=== PATIENT | male | born 1980 | race African-American/Black ===

== ENCOUNTER 2016-06-20 18:49 | Emergency (ER) | payer SELFPAY ==
[2016-06-20] MEDS ORDERED: 0.9 % SODIUM CHLORIDE 1,000 ML IV SCH (19:30)
[2016-06-20] MEDS ORDERED: CloNIDine HCL 0.1 MG TABLET PO ONE ×2 (19:31→20:08)
--- NOTE | 2016-06-20 19:33 | ED Physician Documentation ---
General Adult - HISTORIAN Historian: patient, other (old records) - HPI Stated Complaint: BP elevated Chief Complaint: General Adult Additional Information: Dung JIMENEZ for 3 days. Says his BP is up although he has not taken it. Has slept much of the three days. Says he is taking his BP meds, HCTZ and amlodipine. Has not seen his primary in a year or more. Wants a new BP medication. Has taken 400 mg ibuprofen twice today. - ROS CONST: no problems. denies: fever, sweating EYES/ENT: denies: problems with vision CVS/RESP: denies: chest pain, shortness of breath, cough GI/: denies: vomiting, nausea NEURO/PSYCH: headache - PAST HX Past History: hypertension Allergies/Adverse Reactions: Allergies Allergy/AdvReac Type Severity Reaction Status Date / Time No Known Allergies Allergy Verified 01/12/16 13:31 Home Medications: Ambulatory Orders Medication Instructions Recorded Hydrochlorothiazide [Hydrodiuril] 12.5 mg PO QDAY 06/20/16 amLODIPine BESYLATE [Norvasc] 2 tab PO QDAY 06/20/16 - SOCIAL HX Smoking History: cigarettes Alcohol Use: none Drug Use: none - FAMILY HX Family History: Yes (CAD > 55 years) - VITAL SIGNS Vital Signs: Vital Signs Temp Pulse Resp BP Pulse Ox 147/91 01/12/16 14:45 - REVIEWED ASSESSMENTS Nursing Assessment Reviewed: Yes Vitals Reviewed: Yes Progress - Progress Progress: 2118, JIMENEZ resolved. BP 147/76 after two 0.1 mg doses of clonidine. ED Results Lab/Radiology - Orders Orders: ED Orders Category Date Time Status Place Saline Lock/IV Now Care 06/20/16 19:23 Ordered CBC/PLATELET/DIFF Routine Lab 06/20/16 Ordered CMP Routine Lab 06/20/16 Ordered DRUG SCREEN URINE MEDICAL ONLY Routine Lab 06/20/16 Ordered ETHANOL MEDICAL USE ONLY Stat Lab 06/20/16 Ordered URINALYSIS Routine Lab 06/20/16 Ordered 0.9 % Sodium Chloride [Normal Saline] 1,000 ml Med 06/20/16 19:30 Ordered IV Q3H CloNIDine HCL [Catapress] Med 06/20/16 19:31 Once 0.1 mg PO NOW ONE General Adult Physical Exam - PHYSICAL EXAM GENERAL APPEARANCE: Had to be awakened for exam. EENT: eye inspection normal, ENT inspection normal, pharynx normal, [place] NECK: normal inspection, supple RESPIRATORY: no resp distress, breath sounds normal CVS: reg rate & rhythm, heart sounds normal, no murmur ABDOMEN: soft, normal bowel sounds, no distension, non-tender RECTAL: deferred BACK: normal inspection, no CVA tenderness, other (no vertebral tenderness) SKIN: warm/dry, normal color EXTREMITIES: non-tender, no evidence of injury, no edema NEURO: CN's nml as tested, motor nml, weakness/sensory loss, asymmetric reflexes Discharge Clincal Impression: Headache Qualifiers: Headache type: unspecified Headache chronicity pattern: acute headache Intractability: not intractable Qualified Code(s): R51 - Headache Hypertension Qualifiers: Hypertension type: unspecified secondary hypertension Qualified Code(s): I15.9 - Secondary hypertension, unspecified; I15 - Secondary hypertension Additional Instructions: It is extremely important that you have a primary care provider to control your high blood pressure. Make an appointment to be seen in the next 2-3 days. Home Medications: Ambulatory Orders Hydrochlorothiazide [Hydrodiuril] 12.5 mg PO QDAY 06/20/16 amLODIPine BESYLATE [Norvasc] 2 tab PO QDAY 06/20/16 Condition: Good Disposition: 01 HOME, SELF-CARE Decision to Admit: NO Decision Time: 21:21
[2016-06-20] MEDS ORDERED: 0.9 % SODIUM CHLORIDE 1,000 ML IV ONE (19:39)
[2016-06-20 20:07] LABS: BASOPHILS % 0.3 (0.0-1.5); EOSINOPHILS % 4.3 % (0.0-6.8); LYMPHOCYTES # 1.8 # k/uL (0.6-4.0); MONOCYTES # 0.4 # k/uL (0.0-0.9); MONOCYTES % 5.6 % (0.0-11.0); NEUTROPHILS # 4.1 # k/uL (1.4-7.7)
[2016-06-20 20:08] LABS: eGFR (African) > 60; eGFR (Non-African) > 60
[2016-06-20 20:13] LABS: MEAN CORPUSCULAR HEMOGLOBIN 32.1 pg (28.0-34.0)
[2016-06-20] MEDS ORDERED: KETOROLAC TROMETHAMINE 30 MG/1ML VIAL IVP ONE (20:27)
[2016-06-20 21:50] VITALS: BP 152/77
[2016-06-21 06:08] LABS: OCCULT BLOOD,URINE NEGATIVE (NEGATIVE); PH URINE 7.5 (5.0 - 8.0); UROBILINOGEN URINE 0.2 Eu (0.2-1.0)
== END 2016-06-20 21:32 | disposition home or self-care (01) ==
LOC: ED 18:49
DX: R51 Headache (principal); I15.9 Secondary hypertension, unspecified
CPT/HCPCS: 80053; 80320; 85025; J1885; J7030; 81002; 96360; 96361; 99282; 99283; G0480; S1016

== ENCOUNTER 2018-06-23 20:40 | Emergency (ER) | payer OTHER ==
--- NOTE | 2018-06-23 20:52 | ED Physician Documentation ---
General Adult - HISTORIAN Historian: patient - HPI Stated Complaint: headache, elevated bp Chief Complaint: General Adult Timing: still present Severity: moderate Further Comments: yes (Pt is a 37 yo male with c/o headache and elevated blood pressure. Pt has had similar headaches in the past associated with elevated bp. Pt is on HCTZ and Norvasc. Pt has had nausea and photophobia. BP on presentation = 190/115) - ROS CONST: no problems EYES/ENT: none CVS/RESP: none GI/: nausea MS/SKIN/LYMPH: none NEURO/PSYCH: headache - PAST HX Past History: hypertension, other (DM) Allergies/Adverse Reactions: Allergies Allergy/AdvReac Type Severity Reaction Status Date / Time No Known Allergies Allergy Verified 06/23/18 21:47 Home Medications: Ambulatory Orders Medication Instructions Recorded Hydrochlorothiazide [Hydrodiuril] 12.5 mg PO QDAY 06/20/16 amLODIPine BESYLATE [Norvasc] 2 tab PO QDAY 06/20/16 Metformin HCl 500 mg PO BID 06/23/18 - SOCIAL HX Smoking History: cigarettes - FAMILY HX Family History: No - VITAL SIGNS Vital Signs: Vital Signs Temp Pulse Resp BP Pulse Ox 152/77 06/20/16 21:40 - REVIEWED ASSESSMENTS Nursing Assessment Reviewed: Yes Vitals Reviewed: Yes Progress - Progress Progress: Clonidine 0.1 mg po [place] (5/325) 2 tabs po Zofran 4 mg IV NS 500 cc IVF BP 178/116 --> 144/98 JIMENEZ improved General Adult Physical Exam - PHYSICAL EXAM GENERAL APPEARANCE: moderate distress EENT: eye inspection normal, pharynx normal NECK: normal inspection, supple RESPIRATORY: no resp distress, chest non-tender, breath sounds normal CVS: reg rate & rhythm, heart sounds normal ABDOMEN: soft, no organomegaly, normal bowel sounds BACK: normal inspection, no CVA tenderness SKIN: warm/dry, normal color EXTREMITIES: non-tender, normal range of motion, no evidence of injury NEURO: oriented X3, CN's nml as tested, motor nml, sensation nml Discharge Clincal Impression: Hypertension, Headache Referrals: Primary Doctor,No [Primary Care Provider] - Condition: Stable Disposition: 01 HOME, SELF-CARE Decision to Admit: NO Decision Time: 23:22
[2018-06-23] MEDS ORDERED: HYDROmorphone HCL/PF 1 MG/ML VIAL IVP ONE ×2 (21:04→21:21)
[2018-06-23] MEDS ORDERED: 0.9 % SODIUM CHLORIDE 500 ML IV ONE ×2 (21:06→21:40)
[2018-06-23] MEDS ORDERED: CloNIDine HCL 0.1 MG TABLET PO ONE (21:12)
[2018-06-23] MEDS ORDERED: ONDANSETRON HCL/PF 4 MG/ 2ML VIAL IVP ONE (21:13)
[2018-06-23] MEDS: ONDANSETRON HCL/PF 4 MG/ 2ML VIAL IVP ONE (21:20)
[2018-06-23] MEDS ORDERED: HYDROcodone /APAP 5/325 1 EACH TABLET PO ONE (21:25)
[2018-06-23 23:53] VITALS: BP 144/98
[2018-06-24] MEDS: ONDANSETRON HCL/PF 4 MG/ 2ML VIAL IVP ONE (01:10)
[2018-06-24 09:02] LABS: eGFR (Non-African) > 60
[2018-06-24 09:03] LABS: EOSINOPHILS % 2.7 % (0.0-6.8); MEAN CORPUSCULAR HEMOGLOBIN 30.9 pg (28.0-34.0); MONOCYTES % 6.4 % (0.0-11.0); NEUTROPHILS # 4.3 # k/uL (1.4-7.7)
[2018-06-24 11:23] LABS: APPEARANCE,URINE CLEAR (CLEAR); COLOR,URINE YELLOW (YELLOW); OCCULT BLOOD,URINE NEGATIVE (NEGATIVE); PH URINE 7.5 (5.0 - 8.0); UROBILINOGEN URINE 0.2 Eu (0.2-1.0)
== END 2018-06-23 23:45 | disposition home or self-care (01) ==
LOC: ED 20:40
DX: I10 Essential (primary) hypertension (principal); R51 Headache
CPT/HCPCS: 36415; 80053; 81002; 85025; 96374; 99283; 99284; A9270; J2405; J7060; S1016